=== PATIENT | female | born 2000 | race Caucasian/White ===

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

== ENCOUNTER → 2021-08-24 | Outpatient (CLI) | payer OTHER ==
--- NOTE | 2021-08-25 00:40 | MR ---
EXAMINATION TYPE: MR brain wo/w con DATE OF EXAM: 08/24/2021 COMPARISON: [id number] HISTORY: R22.0 Mass lesion of brain, follow up Study CONTRAST: Standard multiplanar, multisequence MRI departmental protocol images were obtained without contrast a nd with 7.5 mL intravenous Gadavist gadolinium contrast. Ventricles have normal size. There is no mass effect or midline shift. There is no sign of intracrani al hemorrhage. Diffusion images show no evidence of an acute infarct. The brainstem is intact. Sella turcica appears normal. Corpus callosum appears normal. There is no evidence of orbital mass. There i s 2.1 x .8 cm oval-shaped low signal mass on the T2 images adjacent to the anterior right side of the cerebral falx. This shows very minimal enhancement and has increased signal on T1 images. This is co nsistent with lipoma and is slightly increased in size compared to old exam. Previous exam measures 1 7 x 8 mm. There is no evidence of posterior fossa mass. IMPRESSION: Extra-axial weakly enhancing mass adjacent to the cerebral falx is likely a lipoma and measures 3 mm longer than the last exam. No mass effect. No evidence of cerebral edema.
== END | disposition home or self-care (01) ==
LOC: RADMRIMAIN 09:36
PROVIDERS: ATTEND Family Medicine
DX: R22.0 Localized swelling, mass and lump, head (principal)
CPT/HCPCS: 70553; A9585

== ENCOUNTER → 2022-06-07 | Outpatient (CLI) | payer OTHER ==
--- NOTE | 2022-06-07 11:29 | MR ---
EXAMINATION TYPE: MR brain wo con DATE OF EXAM: 06/07/2022 COMPARISON: Prior MRI August 24, 2021 HISTORY: Abnormal MRI TECHNIQUE: Multiplanar, multisequence imaging of the brain and brainstem is performed without IV cont rast. FINDINGS: Diffusion weighted images demonstrate no evidence of a recent infarct or other diffusion abnormality. There is no extraaxial fluid collection or significant white matter signal abnormality. The ventricu lar system and cisternal spaces remain normal in size and appearance. The brain volume is age approp riate. T2 Star weighted images show no suspicious intraparenchymal blood product. The craniocervical junction remains within normal limits. Normal vascular flow voids are present. The visualized sinuses remain clear and the globes are intact. There is oval well-circumscribed lesion a long the anterior interhemispheric fissure measuring 2.1 x 0.9 cm axial image 21 not significantly ch anged in size and appearance from recent MRI study that has increased T1 and diminished T2 signal red emonstrated. IMPRESSION: Stable 2.1 cm anterior extra-axial mass along the intralobar fissure favoring benign etio logy such as dermoid cyst or lipoma.
== END | disposition home or self-care (01) ==
LOC: RADMRIMAIN 10:20
PROVIDERS: ATTEND Neurological Surgery
DX: G93.9 Disorder of brain, unspecified (principal)
CPT/HCPCS: 70551

== ENCOUNTER → 2023-10-28 | Outpatient (CLI) | payer OTHER ==
[2023-10-28 19:06] LABS: Basophils # (A) 0.08 X 10*3/uL (0.00-0.10); Basophils % (A) 0.9 %; Eosinophils # (A) 0.08 X 10*3/uL (0.04-0.35); Eosinophils % (A) 0.9 %; HGB 13.2 g/dL (12.0-15.0); Lymphocytes # (A) 2.21 X 10*3/uL (0.90-5.00); Lymphocytes % (A) 26.1 %; MCH 28.3 pg (27.0-32.0); MCHC 32.2 g/dL (32.0-37.0); MCV 87.8 FL (80.0-97.0); Mean Platelet Volume 9.6 FL (9.5-12.2); Monocytes # (A) 0.39 X 10*3/uL (0.20-1.00); Monocytes % (A) 4.6 %; NRBC Per 100 WBC 0 X 10*3/uL (0.00-0.01); Neutrophils # (A) 5.69 X 10*3/uL (1.80-7.70); Neutrophils % (A) 67.3 %; Platelet Count 363 X 10*3/uL (140-440); RBC 4.67 X 10*6/uL (4.10-5.20); RDW 13.4 % (11.5-14.5); WBC 8.47 X 10*3/uL (4.50-10.00)
[2023-10-28 21:42] LABS: % Iron Saturation 9.24 (12.00-45.00)
== END | disposition home or self-care (01) ==
LOC: LABWHC1 07:43
PROVIDERS: ATTEND Family Medicine
DX: E61.1 Iron deficiency (principal); E53.8 Deficiency of other specified B group vitamins
CPT/HCPCS: 36415; 82607; 82728; 82746; 83540; 83550; 85025

== ENCOUNTER → 2024-12-26 | Outpatient (CLI) | payer OTHER | END | disposition home or self-care (01) | LOC: LABWHC1 14:04 | PROVIDERS: ATTEND Family Medicine | DX: Z28.39 Other underimmunization status (principal) | CPT/HCPCS: 36415; 86762 ==